=== PATIENT | female | born 1980 | race Caucasian/White ===

== ENCOUNTER 2017-06-25 07:04 | Emergency (ER) | payer BC ==
[2017-06-25] MEDS ORDERED: Ondansetron INJ* 2 MG/ML VIAL IV ONE (07:26)
[2017-06-25] MEDS ORDERED: NS 0.9% 1000 ML* 1,000 ML BOLUS ONE (07:26)
--- NOTE | 2017-06-25 07:32 | UC ---
Headache HPI - HPI Summary HPI Summary: 36 yo female with the gradual onset of SEO three days ago frontal and retrobulbar throbbing no relief with advil or tylenol today started vomiting(>10 times) and became photophobic no f/c no sinus symptoms no hx trauma has been diagnosed with migraines Has never had her brain imaged - History Of Current Complaint Chief Complaint: UCHeadache Stated Complaint: HEADACHE Time Seen by Provider: 06/25/17 07:21 Hx Obtained From: Patient Hx Last Menstrual Period: 06/11/17 Onset/Duration: Gradual Onset, Lasting Days Onset Of Symptoms: Gradual Initially Headache Was: Mild Currently Pain Is: Severe Pain Intensity: 8 Pain Scale Used: 0-10 Numeric Timing: Constant Character: Throbbing Location of Headache: Frontal, Other: - retrobulbar Aggravating Factor(s): Nothing Allevating Factor(s): Nothing Associated Signs And Symptoms: Positive: Nausea, Vomiting - Allergies/Home Medications Allergies/Adverse Reactions: Allergies Allergy/AdvReac Type Severity Reaction Status Date / Time Amoxicillin Allergy Difficulty Verified 06/25/17 07:18 Breathing Erythromycin Allergy Anaphylatic Verified 06/25/17 07:18 Shock Iodine Allergy Rash Verified 06/25/17 07:18 Penicillins Allergy Anaphylatic Verified 06/25/17 07:18 Shock Vancomycin Allergy Anaphylatic Verified 06/25/17 07:18 Shock Home Medications: Home Medications Acetaminophen [Tylenol] 650 mg PO 06/25/17 [History] Ibuprofen [Advil] 600 mg PO 06/25/17 [History] PMH/Surg Hx/FS Hx/Imm Hx Previously Healthy: Yes Neurological History: Migraine Other History Of: Negative For: HIV, Hepatitis B, Hepatitis C, Anticoagulant Therapy - Surgical History Surgical History: Yes Surgery Procedure, Year, and Place: 2009 C SECTION [place]. 2009 [place]UBAL [place]ATION [place]. 1984 TONSILECTOMY [facility] [place]. 06/2014 D&C [facility] [place], RIGHT KNEE SURGERY 2014 - Family History Known Family History: Positive: None, Cardiac Disease, Hypertension, Diabetes - Social History Alcohol Use: Rare Alcohol Amount: FEW x YEAR Substance Use Type: None Smoking Status (MU): Former Smoker Type: Cigarettes Amount Used/How Often: 1/2 PPD X 11 YEARS Have You Smoked in the Last Year: No When Did the Patient Quit Smoking/Using Tobacco: 2007- Household Exposure Type: Cigarettes - Immunization History Most Recent Influenza Vaccination: Not the Season Review of Systems Constitutional: Negative Skin: Negative Eyes: Negative ENT: Negative Respiratory: Negative Cardiovascular: Negative Gastrointestinal: Vomiting Genitourinary: Negative Motor: Negative Neurovascular: Negative Musculoskeletal: Negative Neurological: Headache Psychological: Negative Is Patient Immunocompromised?: No All Other Systems Reviewed And Are Negative: Yes Physical Exam Triage Information Reviewed: Yes Appearance: Well-Appearing, Well-Nourished, Pain Distress Vital Signs: Initial Vital Signs Pulse 70 06/25/17 07:12 Resp 18 06/25/17 07:12 Pulse Ox 100 06/25/17 07:12 Eyes: Positive: Conjunctiva Clear, Other: - eomi/perrl/fundi -benign ENT: Positive: Hearing grossly normal, Pharynx normal, TMs normal, Other: - no sinus tenderness. Negative: Tonsillar swelling, Tonsillar exudate, Trismus, Muffled/hoarse voice Neck: Positive: Supple, Nontender, No Lymphadenopathy Respiratory: Positive: Lungs clear, Normal breath sounds, No respiratory distress, No accessory muscle use Cardiovascular: Positive: RRR, No Murmur Musculoskeletal: Positive: ROM Intact, No Edema Neurological: Positive: Alert, Muscle Tone Normal, Other: - GCS 15/15, cranial nerves 2-12 intact Psychological Exam: Normal Skin Exam: Normal Headache Course/Dx - Differential Dx/Diagnosis Provider Diagnoses: ACUTE HEADACHE/SUSPECT MIGRAINE Discharge - Discharge Plan Condition: Stable Disposition: HOME Prescriptions: Ondansetron TAB* [Zofran Tab*] 4 mg PO Q6H PRN #10 tab PRN Reason: Nausea Patient Education Materials: Migraine Headache (ED), Acute Headache (ED) Forms: *Work Release Referrals: Liliana Parikh NP [Primary Care Provider] - 1 Day (if not better)
--- NOTE | 2017-06-25 08:36 | RAD ---
INDICATION: Headache and vomiting. COMPARISON: There are no prior studies available for comparison. TECHNIQUE: Contiguous axial sections of the brain were obtained from the skull base to the vertex without contrast. FINDINGS: The ventricles, cisterns and sulci are within normal limits. No significant focal abnormality or mass effect is seen. There is no evidence for hemorrhage. No significant focal osseous abnormality is seen. The visualized portion of the paranasal sinuses and mastoid air cells appear clear. IMPRESSION: NO EVIDENCE FOR ACUTE INTRACRANIAL ABNORMALITY.
[2017-06-25] MEDS ORDERED: Ketorolac INJ* 30 MG/ML 1 ML VIAL IV ONE (08:43)
[2017-06-25 09:27] VITALS: BP 112/90
== END 2017-06-25 09:50 | disposition home or self-care (01) ==
LOC: UCEAST 07:04
DX: R51 Headache (principal); Z88.3 Allergy status to other anti-infective agents; Z88.0 Allergy status to penicillin; Z87.891 Personal history of nicotine dependence
CPT/HCPCS: 70450; 96361; 96374; 96375; 99212; G0463; J1885; J2405